=== PATIENT | male | born 1985 | race Caucasian/White ===

== ENCOUNTER 2019-12-20 11:11 | Emergency (ER) | payer OTHER ==
[2019-12-20 11:21] VITALS: BP 130/103; PULSE 114; TEMP 99.3
== END 2019-12-20 11:57 | disposition home or self-care (01) ==
LOC: JER 11:11
DX: R07.9 Chest pain, unspecified (principal); U07.1 COVID-19
CPT/HCPCS: 93005; 93010; 99283-25